=== PATIENT | female | born 1960 | race Asian ===

== ENCOUNTER 2018-07-14 05:15 | Emergency (ER) | payer BC ==
--- NOTE | 2018-07-14 05:54 | ER Document Report ---
ED Medical Screen (RME) - General Chief Complaint: Vomiting/Diarrhea Stated Complaint: VOMITING, STOMACH PAIN Notes: Very pleasant 57-year-old female presents to the emergency department for epigastric pain that started 1 week ago. She states the pain is intermittent and she attempted to take Charleen-[place] for it got some mild relief. 3 days later she experienced the same pain, and then last night she was laying in bed and has severe epigastric pain associated with nausea, vomiting, and diarrhea. She denies fevers. She is currently sexually active but has a past surgical history of a hysterectomy. I have greeted and performed a rapid initial assessment of this patient a comprehensive ED assessment and evaluation of the patient, analysis of test results and completion of the medical decision making process will be conducted by additional ED providers. TRAVEL OUTSIDE OF THE [place] IN LAST 30 DAYS: No Physical Exam - Vital signs Vitals: Temp Pulse Resp BP Pulse Ox 97.8 F 81 16 167/84 H 99 07/14/18 05:29 07/14/18 05:29 07/14/18 05:29 07/14/18 05:29 07/14/18 05:29 - Abdominal Inspection: Normal Distension: No distension Bowel sounds: Hypoactive Tenderness: Nontender Organomegaly: No organomegaly Course - Vital Signs Vital signs: Temp Pulse Resp BP Pulse Ox 97.8 F 81 16 167/84 H 99 07/14/18 05:29 07/14/18 05:29 07/14/18 05:29 07/14/18 05:29 07/14/18 05:29
[2018-07-14] MEDS ORDERED: NORMAL SALINE 1000 ML 1,000 ML IV ONE (05:55)
[2018-07-14 06:03] LABS: ABSOLUTE EOSINOPHILS # (AUTO) 0.1 10^3/uL (0.0-0.6); ABSOLUTE LYMPHOCYTES (AUTO) 1.3 10^3/uL (0.5-4.7); ABSOLUTE MONOCYTES (AUTO) 0.8 10^3/uL (0.1-1.4); ABSOLUTE NEUT (AUTO) 9.9 10^3/uL (1.7-8.2); BASOPHILS % (AUTO) 0.2 % (0-2); EOSINOPHILS % (AUTO) 0.5 % (0-6); HEMATOCRIT 44.9 % (36.0-47.0); HEMOGLOBIN 15.3 g/dL (12.0-15.5); LYMPHOCYTES % (AUTO) 10.6 % (13-45); MEAN CORPUSCULAR HEMOGLOBIN 29.2 pg (27.0-33.4); MEAN CORPUSCULAR HGB CONC 34.1 g/dL (32.0-36.0); MEAN CORPUSCULAR VOLUME 86 fl (80-97); MONOCYTES % (AUTO) 6.9 % (3-13); PLATELET COUNT 229 10^3/uL (150-450); RED BLOOD COUNT 5.25 10^6/uL (3.72-5.28); RED CELL DISTRIBUTION WIDTH 12.9 % (11.5-14.0); SEGMENTED NEUTROPHILS % (AUTO) 81.8 % (42-78); TOTAL CELLS COUNTED % (AUTO) 100 %; WHITE BLOOD COUNT 12.1 10^3/uL (4.0-10.5)
--- NOTE | 2018-07-14 06:05 | ER Document Report ---
ED General - General Chief Complaint: Vomiting/Diarrhea Stated Complaint: VOMITING, STOMACH PAIN Time Seen by Provider: 07/14/18 06:04 Notes: Patient is a 57-year-old female with history of GERD that presents to the emergency department for chief complaint of epigastric pain, nausea and vomiting. Patient reports she has been having this pain that comes and goes over the past week, seems to be worse with certain meals she describes it as a sharp pain in the epigastric region, she currently states the pain is essentially resolved, and rates it only as a 1 out of 10. She did have diarrhea last night, which prompted her to come to the emergency department. In the past she states she has had significant esophageal reflux disease, but is not currently taking any medication for it she will intermittently take Charleen- [place], which does improve the pain that she is describing that brought her to the ED. She denies any fevers, chills, night sweats, chest pain, shortness of breath, difficulty breathing. No other complaints at this time. Past Medical History: Hypertension Past Surgical History: Neck surgery, hysterectomy, toe surgery Social History: Denies alcohol, tobacco or illicit drug use. Family History: Reviewed and noncontributory for presenting illness Allergies: Reviewed, see documented allergy list. REVIEW OF SYSTEMS: Other than noted above, the 12 point review of systems was reviewed with the patient and were negative, all pertinent findings are included in the HPI. PHYSICAL EXAMINATION: Vital signs reviewed, nursing noted reviewed. GENERAL: Well-appearing, well-nourished and in no acute distress. HEAD: Atraumatic, normocephalic. EYES: Eyes appear normal, extraocular movements intact, sclera anicteric, conjunctiva are normal. ENT: nares patent, oropharynx clear without exudates. Moist mucous membranes. NECK: Normal range of motion, supple without lymphadenopathy LUNGS: Breath sounds clear to auscultation bilaterally and equal. No wheezes rales or rhonchi. HEART: Regular rate and rhythm without murmurs ABDOMEN: Soft, mild epigastric tenderness to palpation, normoactive bowel sounds. No rebound, guarding, or rigidity. No masses appreciated. EXTREMITIES: Nontender, good range of motion, no pitting or edema. NEUROLOGICAL: No focal neurological deficits. Moves all extremities spontaneously Motor and sensory grossly intact on exam. PSYCH: Normal mood, normal affect. SKIN: Warm, Dry, normal turgor, no rashes or lesions noted on exposed skin TRAVEL OUTSIDE OF THE [place] IN LAST 30 DAYS: No - Related Data Allergies/Adverse Reactions: No Known Allergies Allergy (Verified 07/14/18 05:59) Past Medical History - Social History Smoking Status: Never Smoker Family History: Reviewed & Not Pertinent Physical Exam - Vital signs Vitals: Temp Pulse Resp BP Pulse Ox 97.8 F 81 16 167/84 H 99 07/14/18 05:29 07/14/18 05:29 07/14/18 05:29 07/14/18 05:29 07/14/18 05:29 Course - Re-evaluation Re-evalutation: Patient seen and examined vital signs reviewed. Laboratory data and imaging were ordered as appropriate for the patient's presenting symptoms and complaint, with consideration of any critical or life threatening conditions that may be associated with their obtained history and exam as noted above. Patient was treated with IV fluids, IV Pepcid and Protonix Results were reviewed when available and demonstrated unremarkable, patient had a mild leukocytosis, UA was negative, suspect leukocytosis is from patient's vomiting, is acute phase reactant, no evidence of infection otherwise, other blood work was unremarkable The patient was re-evaluated and was improved, and stable Evaluation was most consistent with epigastric abdominal pain, nonspecific, could be related to esophageal reflux disease as the patient has had in the past , she is advised to follow-up with gastroenterology, given a prescription for omeprazole 40 mg daily. Results were discussed with the patient at this point, after careful consideration I feel that that patient can be discharged from the emergency department, the patient was educated treatments and reasons to return to the emergency department based on their presumed diagnosis as noted above, they were advised to followup with a primary care physician in 2-3 days. Patient was agreeable to plan of care. *Note is created using voice recognition software and may contain spelling, syntax or grammatical errors. Laboratory 07/14/18 07/14/18 07/14/18 05:55 05:55 05:55 WBC 12.1 H RBC 5.25 Hgb 15.3 Hct 44.9 MCV 86 MCH 29.2 MCHC 34.1 RDW 12.9 Plt Count 229 Seg Neutrophils % 81.8 H Lymphocytes % 10.6 L Monocytes % 6.9 Eosinophils % 0.5 Basophils % 0.2 Absolute Neutrophils 9.9 H Absolute Lymphocytes 1.3 Absolute Monocytes 0.8 Absolute Eosinophils 0.1 Absolute Basophils 0.0 Sodium 143.8 Potassium 4.4 Chloride 103 Carbon Dioxide 27 Anion Gap 14 BUN 17 Creatinine 0.62 Est GFR ( Amer) > 60 Est GFR (Non-Af Amer) > 60 Glucose 125 H Calcium 10.8 H Magnesium 2.0 Total Bilirubin 0.4 Direct Bilirubin 0.2 Neonat Total Bilirubin Not Reportable Neonat Direct Bilirubin Not Reportable Neonat Indirect Bili Not Reportable AST 23 ALT 30 Alkaline Phosphatase 95 Total Protein 8.3 H Albumin 4.9 Lipase 142.6 Urine Color STRAW Urine Appearance CLEAR Urine pH 5.0 Ur Specific [place] 1.011 Urine Protein NEGATIVE Urine Glucose (UA) NEGATIVE Urine Ketones NEGATIVE Urine Blood NEGATIVE Urine Nitrite NEGATIVE Urine Bilirubin NEGATIVE Urine Urobilinogen NEGATIVE Ur Leukocyte Esterase NEGATIVE Urine WBC (Auto) 0 Urine RBC (Auto) 0 Urine Mucus (Auto) RARE Urine Ascorbic Acid NEGATIVE - Vital Signs Vital signs: Temp Pulse Resp BP Pulse Ox 97.9 F 85 16 141/80 H 100 07/14/18 07:35 07/14/18 07:35 07/14/18 05:29 07/14/18 07:35 07/14/18 07:35 - Laboratory Result Diagrams: 07/14/18 05:55 07/14/18 05:55 Laboratory results interpreted by me: 07/14/18 07/14/18 05:55 05:55 WBC 12.1 H Seg Neutrophils % 81.8 H Lymphocytes % 10.6 L Absolute Neutrophils 9.9 H Glucose 125 H Calcium 10.8 H Total Protein 8.3 H Discharge - Discharge Clinical Impression: Abdominal pain Qualifiers: Abdominal location: epigastric Qualified Code(s): R10.13 - Epigastric pain Condition: Stable Disposition: HOME, SELF-CARE Instructions: Abdominal Pain ([facility]) Additional Instructions: Please follow-up with gastroenterology, take the medication as prescribed, if your symptoms worsen or do not improve, do not hesitate to return to the emergency department to be reevaluated. Prescriptions: Omeprazole 40 mg PO DAILY #30 capsule.dr Referrals: VICKY PRESLEY MD [ACTIVE STAFF] - Follow up in 3-5 days (gastroenterology )
[2018-07-14 06:06] LABS: APPEARANCE,URINE CLEAR; BILIRUBIN,URINE NEGATIVE (NEGATIVE); COLOR,URINE STRAW; GLUCOSE, URINE NEGATIVE (NEGATIVE); KETONES,URINE NEGATIVE (NEGATIVE); LEUKOCYTE ESTERASE,URINE NEGATIVE (NEGATIVE); NITRITE,URINE NEGATIVE (NEGATIVE); PROTEIN,URINE NEGATIVE (NEGATIVE); URINE SPECIFIC GRAVITY 1.011; UROBILINOGEN,URINE NEGATIVE mg/dL (<2.0)
[2018-07-14] MEDS ORDERED: FAMOTIDINE INJ/PF 20 MG/2 ML SDV IV ONE (06:30)
[2018-07-14] MEDS ORDERED: PANTOPRAZOLE SODIUM 40 MG VIAL IV ONE (06:30)
[2018-07-14 06:34] LABS: ALANINE AMINOTRANSFERASE 30 U/L (9-52); ALBUMIN 4.9 g/dL (3.5-5.0); ALKALINE PHOSPHATASE 95 U/L (38-126); ANION GAP 14 (5-19); ASPARTATE AMINO TRANSFERASE 23 U/L (14-36); BILIRUBIN,DIRECT 0.2 mg/dL (0.0-0.4); BILIRUBIN,TOTAL 0.4 mg/dL (0.2-1.3); BLOOD UREA NITROGEN 17 mg/dL (7-20); CALCIUM 10.8 mg/dL (8.4-10.2); CARBON DIOXIDE 27 mmol/L (22-30); CHLORIDE 103 mmol/L (98-107); GLUCOSE 125 mg/dL (75-110); LIPASE 142.6 U/L (23-300); POTASSIUM 4.4 mmol/L (3.6-5.0); SODIUM 143.8 mmol/L (137-145); TOTAL PROTEIN 8.3 g/dL (6.3-8.2)
[2018-07-14 07:39] VITALS: BP 141/80
== END 2018-07-14 07:38 | disposition home or self-care (01) ==
LOC: ER 05:15
DX: R10.13 Epigastric pain (principal); R19.7 Diarrhea, unspecified; K21.9 Gastro-esophageal reflux disease without esophagitis; R11.2 Nausea with vomiting, unspecified; I10 Essential (primary) hypertension
CPT/HCPCS: 99284; 96361; 96374; 96375; 36415; 83690; 83735; 85025; 80053; 81001; S0164; J7030; S0028